=== PATIENT | female | born 1995 | race Two or more races ===

== ENCOUNTER 2018-05-17 03:15 | Emergency (ER) | payer MEDICAID | END 2018-05-17 05:23 | disposition left against medical advice (07) | LOC: ER 03:15 → EDBD 03:15 → ER 05:23 | DX: F41.9 Anxiety disorder, unspecified (principal); Z53.21 Procedure and treatment not carried out due to patient leaving prior to being seen by health care provider ==

== ENCOUNTER 2019-11-28 17:32 | Emergency (ER) | payer MEDICAID ==
[~2019-11-28] VITALS: Ht 167.6 cm; Wt 63.5 kg
[2019-11-28 17:49] VITALS: BP 113/69
== END 2019-11-28 21:02 | disposition left against medical advice (07) ==
LOC: EDBD 17:32 → ER 17:32
DX: T78.40XA Allergy, unspecified, initial encounter (principal); R07.89 Other chest pain; R06.02 Shortness of breath; Z53.21 Procedure and treatment not carried out due to patient leaving prior to being seen by health care provider

== ENCOUNTER 2021-05-28 02:03 | Emergency (ER) | payer MEDICAID ==
[~2021-05-28] VITALS: Ht 154.9 cm; Wt 77.1 kg
[2021-05-28] MEDS ORDERED: ACETAMINOPHEN 325 MG TAB PO ONE (02:45)
[2021-05-28] MEDS ORDERED: ACETAMINOPHEN 650 mg PER 20.3 mL UD PO ONE (03:00)
[2021-05-28 03:01] LABS: Basophils # (auto) 0.1 10 ^3/uL (0-0.2); Basophils % (auto) 1.2 % (0.0-2.0); Eosinophils # (auto) 0.2 10 ^3/uL (0-0.8); Eosinophils % (auto) 2.8 % (0.0-7.0); Hematocrit 37.8 % (36.0-46.0); Hemoglobin 13.2 g/dL (12.2-16.2); Lymphocytes # (auto) 1.9 10 ^3/uL (0.4-5.4); Lymphocytes % (auto) 29.4 % (10.0-50.0); Mean Corpuscular Hemoglobin 29.2 pg (28.0-32.0); Mean Corpuscular Hgb Conc. 34.9 g/dL (32.0-36.0); Mean Corpuscular Volume 83.6 fL (80.0-100.0); Monocytes # (auto) 0.5 10 ^3/uL (0-1.3); Monocytes % (auto) 8.6 % (0.0-12.0); Neutrophils # (auto) 3.7 10 ^3/uL (1.6-8.6); Nucleated Red Blood Cells % 0.1 %; Red Blood Cells 4.52 10^6/uL (4.0-5.20); Red Cell Distribution Width 14.4 % (11.8-14.3); White Blood Cell 6.3 10^3/uL (4.4-10.8)
[2021-05-28 03:11] LABS: Albumin 3.5 g/dL (3.4-5.0); BUN/Creatinine Ratio 20.3; Calcium 8.7 mg/dL (8.5-10.1); Potassium 3.6 mmol/L (3.5-5.1)
[2021-05-28 03:13] LABS: Bilirubin, Total 0.3 mg/dL (0.2-1.0); Total Protein 7.8 g/dL (6.4-8.2)
[2021-05-28 05:39] LABS: Urine Bacteria FEW /hpf (None Seen); Urine Blood 1+ /uL (Negative); Urine Mucus FEW (None Seen); Urine Specific Gravity 1.026 (1.001-1.035); Urine WBC 6 /hpf (0 - 5)
[2021-05-28 05:58] LABS: Amphetamine Screen, Urine NEGATIVE (NEGATIVE); Barbiturate Scree,Urine NEGATIVE (NEGATIVE); Benzodiazephine Screen, Urine POSITIVE (NEGATIVE); Cannabinoid Screen, Urine NEGATIVE (NEGATIVE); Cocaine Screen, Urine NEGATIVE (NEGATIVE); Opiate Scree,Urine NEGATIVE (NEGATIVE); Phencyclidine Screen, Urine NEGATIVE (NEGATIVE)
[2021-05-28] MEDS ORDERED: cefTRIAXone 1GM/50ML D5W 50 ML IV ONE (07:30)
[2021-05-28] MEDS ORDERED: IBUPROFEN 600 MG TAB PO ONE (08:15)
[2021-05-28 10:00] VITALS: BP 96/47
== END 2021-05-28 11:17 | disposition home or self-care (01) ==
LOC: ER 02:03 → EDBD 02:03 → ER 11:17
DX: G40.909 Epilepsy, unspecified, not intractable, without status epilepticus (principal); N39.0 Urinary tract infection, site not specified; J45.909 Unspecified asthma, uncomplicated
CPT/HCPCS: 36415; 80053; 80307; 81001; 84702; 85025; 93005; 96365; 96366; 96368; 99285; J0696; J1953; J7060

== ENCOUNTER 2021-09-27 21:30 | Emergency (ER) | payer MEDICAID ==
[~2021-09-27] VITALS: Ht 162.6 cm; Wt 61.3 kg
[2021-09-27 21:40] VITALS: BP 112/70
[2021-09-27] MEDS ORDERED: ACETAMINOPHEN 325 MG TAB PO ONE ×2 (22:34→22:45)
[2021-09-28 00:52] LABS: Basophils # (auto) 0 10 ^3/uL (0-0.2); Basophils % (auto) 0.3 % (0.0-2.0); Eosinophils # (auto) 0 10 ^3/uL (0-0.8); Eosinophils % (auto) 0.4 % (0.0-7.0); Hematocrit 39.4 % (36.0-46.0); Lymphocytes # (auto) 0.9 10 ^3/uL (0.4-5.4); Lymphocytes % (auto) 7.8 % (10.0-50.0); Mean Corpuscular Hemoglobin 28.4 pg (28.0-32.0); Mean Corpuscular Hgb Conc. 33.1 g/dL (32.0-36.0); Mean Corpuscular Volume 85.7 fL (80.0-100.0); Monocytes # (auto) 0.6 10 ^3/uL (0-1.3); Neutrophils % (auto) 86.5 % (37.0-80.0); Nucleated Red Blood Cells % 0.8 %; Red Blood Cells 4.59 10^6/uL (4.0-5.20); Red Cell Distribution Width 14.5 % (11.8-14.3); White Blood Cell 11.6 10^3/uL (4.4-10.8)
[2021-09-28 01:12] LABS: Albumin 3.9 g/dL (3.4-5.0); Calcium 8.6 mg/dL (8.5-10.1); Potassium 3.6 mmol/L (3.5-5.1)
[2021-09-28 01:17] LABS: Bilirubin, Total 0.6 mg/dL (0.2-1.0); Total Protein 8.1 g/dL (6.4-8.2)
[2021-09-28] MEDS ORDERED: PERCOT PO (02:21)
== END 2021-09-28 02:32 | disposition home or self-care (01) ==
LOC: EDBD 21:30 → ER 21:30
DX: R07.89 Other chest pain (principal); J45.909 Unspecified asthma, uncomplicated; Z88.0 Allergy status to penicillin
CPT/HCPCS: 36415; 70450; 71045; 71250; 74176; 80053; 84443; 84484; 85025; 93005

== ENCOUNTER 2023-08-12 16:41 | Inpatient (IN) | payer MEDICAID ==
[~2023-08-12] VITALS: Ht 165.1 cm; Wt 79.8 kg
[~2023-08-12 16:41] MED LIST: PERCOT PO
[2023-08-12 17:35] VITALS: O2SAT 97
[2023-08-12 18:08] LABS: Basophils # (auto) 0 10 ^3/uL (0-0.2); Basophils % (auto) 0.3 % (0.0-2.0); Eosinophils # (auto) 0.1 10 ^3/uL (0-0.8); Eosinophils % (auto) 1.1 % (0.0-7.0); Hematocrit 38.8 % (36.0-46.0); Hemoglobin 12.6 g/dL (12.2-16.2); Lymphocytes # (auto) 1.1 10 ^3/uL (0.4-5.4); Mean Corpuscular Hemoglobin 25.5 pg (28.0-32.0); Mean Corpuscular Hgb Conc. 32.4 g/dL (32.0-36.0); Mean Corpuscular Volume 78.7 fL (80.0-100.0); Monocytes # (auto) 0.3 10 ^3/uL (0-1.3); Monocytes % (auto) 3.8 % (0.0-12.0); Neutrophils # (auto) 5.9 10 ^3/uL (1.6-8.6); Neutrophils % (auto) 79.8 % (37.0-80.0); Nucleated Red Blood Cells % 0.1 %; Red Blood Cells 4.93 10^6/uL (4.0-5.20); Red Cell Distribution Width 18.5 % (11.8-14.3); White Blood Cell 7.4 10^3/uL (4.4-10.8)
[2023-08-12 18:26] LABS: Alanine Aminotransferase 28 U/L (7-40); Albumin 4.3 g/dL (3.2-4.8); Alkaline Phosphatase 138 U/L (46-116); Anion Gap 8 (5-15); Aspartate Aminotransferase 21 U/L (13-40); Blood Urea Nitrogen 8 mg/dL (9-23); Calcium 9.2 mg/dL (8.5-10.1); Carbon Dioxide 21 mmol/L (20-30); Chloride 108 mmol/L (98-107); Glucose 81 mg/dL (74-106); Potassium 3.4 mmol/L (3.5-5.1); Sodium 137 mmol/L (136-145)
[2023-08-12 18:27] LABS: Bilirubin, Total 0.5 mg/dL (0.2-1.0); Total Protein 7.5 g/dL (5.7-8.2)
[2023-08-12 19:05] LABS: Urine Bacteria None Seen /hpf (None Seen); Urine Blood Negative /uL (Negative); Urine Clarity Clear (Clear); Urine Color Light-Yellow (Yellow); Urine Mucus FEW (None Seen); Urine Protein, UAD Negative (Negative); Urine Specific Gravity 1.014 (1.001-1.035); Urine Urobilinogen Normal (Negative); Urine WBC 1 /hpf (0 - 5)
[2023-08-12] MEDS: MORPHINE SULFATE 4 MG/ML SYR/VIAL IV ONE (19:06)
[2023-08-12] MEDS: ONDANSETRON HCL 4 MG/2 ML VIAL IV ONE (19:06)
[2023-08-12 20:00] VITALS: PULSE 99; RESP 17; O2SAT 97
[2023-08-12] MEDS: MIDAZOLAM HCL 2MG/2ML 2ml VIAL (1mg/ml) IV ONE (20:48)
[2023-08-12] MEDS: levETIRAcetam 1000 mg/100ml 100 ML IV ONE (20:48)
[2023-08-12] MEDS: IOHEXOL 350 MG/ML 100ML IJ ONE (21:29)
[2023-08-12] MEDS ORDERED: ACETAMINOPHEN 325 MG TAB PO PRN (21:45)
[2023-08-12] MEDS ORDERED: NITROGLYCERIN 0.4 MG SL TAB SL PRN (21:45)
[2023-08-12] MEDS ORDERED: MORPHINE SULFATE INJ 2 MG/ml SYRG IV PRN (21:45)
[2023-08-12] MEDS ORDERED: DOCUSATE SOD 100 MG CAP PO PRN (21:45)
[2023-08-12] MEDS: LORazepam 2MG/ML-1ML VIAL IV PRN (22:20)
[2023-08-12] MEDS: MORPHINE SULFATE INJ 2 MG/ml SYRG IV PRN (22:21)
[2023-08-12] MEDS: SODIUM CHLORIDE 0.9% 2,000 ML IV ONE (22:22)
[2023-08-12] MEDS: MORPHINE SULFATE INJ 2 MG/ml SYRG IV ONE (22:25)
[2023-08-12] MEDS: LORazepam 2MG/ML-1ML VIAL IV ONE (22:25)
[2023-08-12] MEDS: POTASSIUM EFFERVESENT TAB 25 MEQ PO ONE (22:30)
[2023-08-12 22:45] LABS: Amphetamine Screen, Urine Neg (NEGATIVE)
[2023-08-12 22:46] LABS: Barbiturate Scree,Urine Neg (NEGATIVE); Benzodiazephine Screen, Urine Pos (NEGATIVE); Cannabinoid Screen, Urine Neg (NEGATIVE); Cocaine Screen, Urine Neg (NEGATIVE); Opiate Scree,Urine Neg (NEGATIVE); Phencyclidine Screen, Urine Neg (NEGATIVE)
[2023-08-13] VITALS (32 sets, daily range): BP systolic 83–111; BP diastolic 45–64; PULSE 60–106; RESP 12–21; TEMP 98–99.1; O2SAT 93–100
[2023-08-13] MEDS: ONDANSETRON HCL 4 MG/2 ML VIAL IV PRN (01:11)
[2023-08-13] MEDS: HYDROcodone-ACET 5/325MG TAB PO PRN (02:57)
[2023-08-13] MEDS ORDERED: ALBU108A5 INH (03:55)
[2023-08-13] MEDS ORDERED: FLUT110A8 PO (03:55)
[2023-08-13] MEDS: KETOROLAC TROMETH 30 MG/ML 1ML VIAL IV ONE (05:30)
[2023-08-13 08:07] LABS: Basophils # (auto) 0 10 ^3/uL (0-0.2); Eosinophils # (auto) 0.1 10 ^3/uL (0-0.8); Hemoglobin 11.4 g/dL (12.2-16.2); Mean Corpuscular Volume 80.3 fL (80.0-100.0); Monocytes # (auto) 0.3 10 ^3/uL (0-1.3); Monocytes % (auto) 8.2 % (0.0-12.0); Neutrophils # (auto) 1.9 10 ^3/uL (1.6-8.6)
[2023-08-13 08:12] LABS: Basophils % (auto) 0.4 % (0.0-2.0); Eosinophils % (auto) 2.3 % (0.0-7.0); Hematocrit 35.5 % (36.0-46.0); Lymphocytes # (auto) 1.1 10 ^3/uL (0.4-5.4); Lymphocytes % (auto) 33.3 % (10.0-50.0); Mean Corpuscular Hemoglobin 25.9 pg (28.0-32.0); Mean Corpuscular Hgb Conc. 32.2 g/dL (32.0-36.0); Neutrophils % (auto) 55.8 % (37.0-80.0); Nucleated Red Blood Cells % 0.3 %; Red Blood Cells 4.42 10^6/uL (4.0-5.20); Red Cell Distribution Width 18.9 % (11.8-14.3); White Blood Cell 3.3 10^3/uL (4.4-10.8)
[2023-08-13] MEDS ORDERED: traMADol HCL 50 MG TAB PO PRN (08:15)
[2023-08-13 08:19] LABS: Alanine Aminotransferase 23 U/L (7-40); Albumin 3.5 g/dL (3.2-4.8); Alkaline Phosphatase 115 U/L (46-116); Anion Gap 6 (5-15); Aspartate Aminotransferase 22 U/L (13-40); Bilirubin, Total 0.4 mg/dL (0.2-1.0); Calcium 8.4 mg/dL (8.5-10.1); Carbon Dioxide 22 mmol/L (20-30); Chloride 109 mmol/L (98-107); Glucose 76 mg/dL (74-106); Potassium 3.8 mmol/L (3.5-5.1); Sodium 137 mmol/L (136-145); Total Protein 6.3 g/dL (5.7-8.2)
[2023-08-13 08:20] LABS: Blood Urea Nitrogen < 5 mg/dL (9-23)
[2023-08-13 09:24] LABS: INR 1.03 (0.9-1.15); Partial Thromboplastin Time 25.4 SEC (24.5-34.5); Prothrombin Time 10.9 sec (9.3-11.8)
[2023-08-13] MEDS: levETIRAcetam 500 mg/100ml 100 ML IV SCH (09:29)
[2023-08-13] MEDS ORDERED: SODIUM CHLORIDE 0.9% 1,000 ML IV SCH (10:30)
[2023-08-13] MEDS ORDERED: HYDROcodone-ACET 5/325MG TAB PO PRN ×2 (10:30→11:30)
[2023-08-13] MEDS ORDERED: VANCOMYCIN PER PHARMACY 0 MG IV SCH (10:30)
[2023-08-13] MEDS: VANCOMYCIN 1GM/200ML 200 ML IV ONE (10:51)
[2023-08-13 10:57] LABS: % Iron Saturation 13.7 % (15-50)
[2023-08-13 11:00] LABS: Ferritin 24.9 ng/mL (10-291); Folate (Folic Acid) 22.82 ng/mL (>5.38)
[2023-08-13] MEDS: MORPHINE SULFATE INJ 2 MG/ml SYRG IV ONE (11:02)
[2023-08-13] MEDS: MORPHINE SULFATE INJ 2 MG/ml SYRG IV PRN ×2 (11:05→16:50)
[2023-08-13] MEDS: MORPHINE SULFATE INJ 2 MG/ml SYRG ONE (11:24)
[2023-08-13] MEDS ORDERED: ACETAMINOPHEN 325 MG TAB PO PRN (11:30)
[2023-08-13 11:39] LABS: COVID19 ANTIGEN SOFIA FIA NEGATIVE (NEGATIVE)
[2023-08-13] MEDS: hydrALAZINE HCL 20 MG/ML VL ONE (12:19)
[2023-08-13] MEDS ORDERED: DEXTROSE (50%) 50ML SYRG IV PRN (12:30)
[2023-08-13] MEDS: MEROPENEM 1GM IVPB 50 ML IV SCH (12:40)
[2023-08-13] MEDS: D5W 5% 1,000 ML IV SCH (12:49)
[2023-08-13 13:13] LABS: Lipase 28 U/L (12-53); Magnesium 1.6 mg/dL (1.6-2.6)
[2023-08-13] MEDS ORDERED: IPRATROPIUM BROM 0.5 MG/2.5ML INH SOL NEB PRN (15:00)
[2023-08-13] MEDS ORDERED: ALBUTEROL SULF 2.5 MG/0.5ML(0.5%) NEB SOLN NEB PRN (15:00)
[2023-08-13] MEDS: ACCU-CHEK COMFORT CURVE STRIP VI SCH (18:35)
[2023-08-13] MEDS: ENOXAPARIN SOD 40 MG/0.4 ML SYRINGE SC ONE (18:45)
[2023-08-13] MEDS: MAGNESIUM SULFATE 1GM/100ML 100 ML IV ONE (19:33)
[2023-08-13] MEDS: CYANOCOBALAMIN (B-12) 1000 MCG/1 ML VIAL IM ONE (19:50)
[2023-08-13] MEDS: KETOROLAC TROMETH 30 MG/ML 1ML VIAL IV PRN (20:10)
[2023-08-13] MEDS ORDERED: LORazepam 2MG/ML-1ML VIAL IV PRN (21:15)
[2023-08-13] MEDS: VANCOMYCIN 1GM/200ML 200 ML IV SCH (21:38)
[2023-08-13] MEDS ORDERED: levETIRAcetam 1000 mg/100ml 100 ML IV SCH (22:00)
[2023-08-14] VITALS (9 sets, daily range): BP systolic 84–111; BP diastolic 39–73; PULSE 66–84; RESP 16–24; TEMP 98–98.8; O2SAT 92–100
[2023-08-14 05:07] LABS: Basophils # (auto) 0 10 ^3/uL (0-0.2); Eosinophils # (auto) 0.2 10 ^3/uL (0-0.8); Hemoglobin 12.5 g/dL (12.2-16.2); Lymphocytes # (auto) 1.6 10 ^3/uL (0.4-5.4); Lymphocytes % (auto) 36.4 % (10.0-50.0); Neutrophils # (auto) 2.2 10 ^3/uL (1.6-8.6); Nucleated Red Blood Cells % 0.2 %
[2023-08-14 05:10] LABS: Basophils % (auto) 0.5 % (0.0-2.0); Eosinophils % (auto) 4.4 % (0.0-7.0); Hematocrit 39.2 % (36.0-46.0); Mean Corpuscular Hemoglobin 25.4 pg (28.0-32.0); Mean Corpuscular Volume 79.6 fL (80.0-100.0); Monocytes # (auto) 0.4 10 ^3/uL (0-1.3); Monocytes % (auto) 8.1 % (0.0-12.0); Neutrophils % (auto) 50.6 % (37.0-80.0); Red Blood Cells 4.93 10^6/uL (4.0-5.20); Red Cell Distribution Width 18.3 % (11.8-14.3); White Blood Cell 4.4 10^3/uL (4.4-10.8)
[2023-08-14 05:20] LABS: Chloride 109 mmol/L (98-107); Potassium 3.9 mmol/L (3.5-5.1); Sodium 138 mmol/L (136-145)
[2023-08-14 05:21] LABS: Anion Gap 7 (5-15); Calcium 9.1 mg/dL (8.7-10.4); Carbon Dioxide 22 mmol/L (20-30)
[2023-08-14 05:26] LABS: Glucose 79 mg/dL (74-106)
[2023-08-14 05:27] LABS: BUN/Creatinine Ratio 9.1 (10.0-20.0); Blood Urea Nitrogen < 5 mg/dL (9-23); Magnesium 1.8 mg/dL (1.6-2.6)
[2023-08-14 05:28] LABS: Phosphorus 3.8 mg/dL (2.4-5.1)
[2023-08-14 07:07] LABS: RPR Non Reactive (Non Reactive)
[2023-08-14 08:07] LABS: Cancer Antigen (CA) 125 5.9 U/mL (0.0-38.1); Haptoglobin 195 mg/dL (33-278)
[2023-08-14] MEDS: D5W 5% 1,000 ML IV SCH (08:12)
[2023-08-14] MEDS: MAGNESIUM SULFATE 1GM/100ML 100 ML IV ONE (08:12)
[2023-08-14] MEDS: CYANOCOBALAMIN 500 MCG TAB PO SCH (09:59)
[2023-08-14] MEDS: ENOXAPARIN SOD 40 MG/0.4 ML SYRINGE SC SCH (10:00)
[2023-08-14] MEDS ORDERED: VANCOMYCIN 1GM/200ML 200 ML IV SCH (22:09)
[2023-08-14] MEDS: VANCOMYCIN 1GM/200ML 200 ML IV SCH (22:35)
[2023-08-15] VITALS (10 sets, daily range): BP systolic 94–110; BP diastolic 45–71; PULSE 62–74; RESP 17–22; TEMP 98.4–99.1; O2SAT 96–99
[2023-08-15 05:55] LABS: Basophils # (auto) 0 10 ^3/uL (0-0.2); Basophils % (auto) 0.5 % (0.0-2.0); Eosinophils # (auto) 0.2 10 ^3/uL (0-0.8); Eosinophils % (auto) 4.1 % (0.0-7.0); Hematocrit 34.8 % (36.0-46.0); Hemoglobin 11.4 g/dL (12.2-16.2); Lymphocytes # (auto) 1.9 10 ^3/uL (0.4-5.4); Mean Corpuscular Hemoglobin 25.8 pg (28.0-32.0); Mean Corpuscular Hgb Conc. 32.8 g/dL (32.0-36.0); Mean Corpuscular Volume 78.6 fL (80.0-100.0); Monocytes # (auto) 0.4 10 ^3/uL (0-1.3); Monocytes % (auto) 8.4 % (0.0-12.0); Neutrophils # (auto) 2.2 10 ^3/uL (1.6-8.6); Red Blood Cells 4.43 10^6/uL (4.0-5.20); Red Cell Distribution Width 18.6 % (11.8-14.3); White Blood Cell 4.8 10^3/uL (4.4-10.8)
[2023-08-15 06:09] LABS: Anion Gap 6 (5-15); Carbon Dioxide 23 mmol/L (20-30); Chloride 108 mmol/L (98-107); Potassium 3.5 mmol/L (3.5-5.1); Sodium 137 mmol/L (136-145)
[2023-08-15 06:10] LABS: Calcium 8.9 mg/dL (8.7-10.4)
[2023-08-15 06:15] LABS: BUN/Creatinine Ratio 13.2 (10.0-20.0); Blood Urea Nitrogen 7 mg/dL (9-23); Glucose 98 mg/dL (74-106); Magnesium 1.7 mg/dL (1.6-2.6)
[2023-08-15] MEDS ORDERED: MORPHINE SULFATE INJ 2 MG/ml SYRG IV PRN (07:45)
[2023-08-15] MEDS ORDERED: ACETAMINOPHEN 325 MG TAB PO PRN (07:45)
[2023-08-15] MEDS ORDERED: LORazepam 2MG/ML-1ML VIAL IV ONE ×2 (09:15)
[2023-08-15] MEDS ORDERED: LORazepam 2MG/ML-1ML VIAL IV PRN (09:15)
[2023-08-15] MEDS: MAGNESIUM OXIDE 400 MG TAB PO SCH (10:00)
[2023-08-15] MEDS ORDERED: CEPH250C PO (13:38)
[2023-08-15] MEDS ORDERED: MAGN400T40 PO (13:38)
[2023-08-15] MEDS ORDERED: ACET-1882 PO (13:38)
[2023-08-15] MEDS ORDERED: CYAN100056 PO (13:38)
[2023-08-15] MEDS ORDERED: CEPHALEXIN 250 MG CAP PO ONE (13:45)
[2023-08-15] MEDS ORDERED: LEVO500T91 PO (14:00)
[2023-08-15] MEDS: levoFLOXacin 500 MG TAB PO ONE (14:45)
[2023-08-15] MEDS: THROAT LOZENGES(CEPASTAT) MT ONE (14:46)
[2023-08-15] MEDS: HYDROcodone-ACET 5/325MG TAB PO PRN (14:46)
[2023-08-15] MEDS ORDERED: CEPHALEXIN 250 MG CAP PO SCH (22:00)
[2023-08-16] MEDS ORDERED: levoFLOXacin 500 MG TAB PO SCH (10:00)
[2023-08-19 10:06] LABS: Methylmalonic Acid 96 nmol/L (0-378)
== END 2023-08-15 16:11 | disposition home or self-care (01) | DRG 53 ==
LOC: ER 16:41 → EDBD 16:41 → TELE 21:47 → TELE-WESTW 08-13 02:48 → DOU IN ICU 08-13 13:34 → WEST WING 08-14 17:34
PROVIDERS: ADMIT Internal Medicine; ATTEND Anesthesiology
DX: G40.911 Epilepsy, unspecified, intractable, with status epilepticus (principal); E16.2 Hypoglycemia, unspecified; E53.8 Deficiency of other specified B group vitamins; E87.6 Hypokalemia; F17.200 Nicotine dependence, unspecified, uncomplicated; E83.42 Hypomagnesemia; J45.909 Unspecified asthma, uncomplicated; F41.9 Anxiety disorder, unspecified; F39 Unspecified mood [affective] disorder; Z20.822 Contact with and (suspected) exposure to COVID-19; Z82.5 Family history of asthma and other chronic lower respiratory diseases; Z88.0 Allergy status to penicillin; Z88.8 Allergy status to other drugs, medicaments and biological substances; Z91.030 Bee allergy status; Z82.49 Family history of ischemic heart disease and other diseases of the circulatory system; Z82.3 Family history of stroke; Z83.3 Family history of diabetes mellitus; Z76.5 Malingerer [conscious simulation]; Z98.891 History of uterine scar from previous surgery; N39.0 Urinary tract infection, site not specified
CPT/HCPCS: 36415; 70450; 71045; 71260; 74177; 76700; 76856; 80048; 80053; 80202; 80307; 81001; 81025; 82105; 82306; 82607; 82728; 82746; 82962; 83010; 83036; 83540; 83550; 83605; 83615; 83690; 83735; 84100; 84443; 84702; 85025; 85045; 85610; 85730; 86038; 86301; 86304; 86592; 86703; 87040; 87081; 87426; 95819; 96361; 96365; 96375; 96376; 99291; G0378; J1885; J2185; J2250; J2405